=== PATIENT | male | born 1935 | race Caucasian/White ===

== ENCOUNTER 2016-02-22 19:30 | Inpatient (IN) | payer MEDICARE, OTHER ==
[~2016-02-22] VITALS: Ht 185.4 cm; Wt 98.9 kg
--- NOTE | 2016-02-22 19:30 | NUR ---
PT ARRIVED TO UNIT VIA WHEELCHAIR ACCOMPANIED BY HOSPITAL STAFF AND SPOUSE. PT IS A&OX4. PT IS WEARING A BACK BRACE THAT HE IS TO WEAR ANY TIME HE IS OUT OF BED. PT HAS A DECUB ON HIS LEFT BUTTOCK, WILL PUT IN WOUND CONSULT. PT ORIENTED TO ROOM AND INSTRUCTED ON USE OF CALL LIGHT. PT DENIES NEEDS AT THIS TIME. BED LOW. CL IN [facility]. [facility].
[2016-02-22 21:04] VITALS: BP 120/57; BMI 28.8
[2016-02-22 21:10] VITALS: BP 120/57
--- NOTE | 2016-02-22 22:10 | NUR ---
PT TOOK HS MEDS WITHOUT DIFFICULTY. PT DENIES NEEDS AT THIS TIME. BED LOW. CL IN [facility]. TM.
--- NOTE | 2016-02-23 01:19 | NUR ---
PT RESTING, EYES CLOSED. BED LOW. CL IN REACH. WCTM
--- NOTE | 2016-02-23 03:20 | NUR ---
PT RESTING, EYES CLOSED. BED LOW. CL IN REACH. WCTM.
[2016-02-23] MEDS ORDERED: VIBRAMYCIN 100100 MG PO (04:57)
[2016-02-23] MEDS ORDERED: ACETAMINOPHEN500 M1 PO (04:58)
[2016-02-23] MEDS ORDERED: ASPIRIN81 MG PO (04:59)
[2016-02-23] MEDS ORDERED: CELEBREX200 MG PO (04:59)
[2016-02-23] MEDS ORDERED: GABAPENTIN100 MG PO (05:00)
[2016-02-23] MEDS ORDERED: IBUPROFEN400 MG PO (05:01)
[2016-02-23] MEDS ORDERED: ROBAXIN-750750 MG PO (05:02)
[2016-02-23] MEDS ORDERED: OCUVITE TABLET1 TA1 PO (05:03)
[2016-02-23] MEDS ORDERED: MULTI-DAY VITAM1 TAB PO (05:03)
[2016-02-23] MEDS ORDERED: MS CONTIN15 MG PO (05:03)
[2016-02-23] MEDS ORDERED: OXYCODONE HCL5 MG PO (05:04)
[2016-02-23] MEDS ORDERED: ZOCOR40 MG PO (05:05)
[2016-02-23] MEDS ORDERED: PRENATAL COMPLE1 TAB PO (05:05)
[2016-02-23] MEDS ORDERED: SPIRIVA18 MCG INH (05:06)
[2016-02-23] MEDS ORDERED: AMBIEN CR 6.26.25 MG PO (05:06)
--- NOTE | 2016-02-23 06:40 | NUR ---
PT RESTING IN BED, EYES OPEN, DENIES NEEDS. BED LOW. CL IN REACH.
[2016-02-23 07:13] LABS: BASOPHILS 0.5 % (0.0-2.0); EOSINOPHILS 4.4 % (0-7); HEMATOCRIT 30.2 % (42.0-54.0); HEMOGLOBIN 9.3 g/dL (13.5-17.5); IMMATURE GRANULOCYTES 3.2 % (0-5); LYMPHOCYTES 15.3 % (15-50); MCH 29.2 pg (26.0-34.0); MCHC 30.8 g/dL (31.0-37.0); MCV 94.7 fL (80.0-100.0); MEAN PLATELET VOLUME 9.5 fL (7.4-10.4); NEUTROPHILS 66.6 % (40-80); PLATELET COUNT 318 10x3/uL (130-400); RBC 3.19 10x6/uL (4.20-6.10); RDW 14.9 % (11.5-14.5)
[2016-02-23 07:26] LABS: ANION GAP 10.2 mmol/L (8-16); CALCIUM 8.4 mg/dL (8.5-10.1); CREATININE - SERUM 1.3 mg/dL (0.6-1.3); POTASSIUM - SERUM 4.2 mmol/L (3.5-5.1)
--- NOTE | 2016-02-23 08:03 | NUR ---
PATIENT AWAKE, ALERT/ORIENT X4. CALL LIGHT WITHIN REACH. VOICES NO NEEDS
[2016-02-23 08:41] VITALS: Ht 185.4 cm; Wt 98.9 kg
[2016-02-23 09:54] VITALS: BP 103/67
--- NOTE | 2016-02-23 10:39 | NUR ---
DR. Stacey DONALD INTO SEE PATIENT. NEW ORDERS RECEIVED. PATIENT IS ALERT/OREINT X4
--- NOTE | 2016-02-23 13:00 | NUR ---
PATIENT IN REHAB ROOM. WORKING WITH PHYSICAL THERAPIST. BACK BRACE ON. DENIES ANY PAIN/DISC AT THIS TIME
--- NOTE | 2016-02-23 16:09 | NUR ---
PATIENT USING CALL LIGHT TO GO TO THE BATHROOM. STANDBY ASST. PATIENT HAS AN UNSTEADY GAIT
--- NOTE | 2016-02-23 19:40 | NUR ---
PT RESTING IN BED WATCHING TV, DENIES NEEDS AT THIS TIME. BED LOW. CL IN REACH. WCTM.
[2016-02-23 19:45] VITALS: BP 110/69
--- NOTE | 2016-02-23 20:45 | NUR ---
PT TOOK HS MEDS WITHOUT DIFFICULYT. PT STATES PAIN LEVEL OF 5 TO LOWER BACK. PT REMINDED TO USE URINAL THROUGHOUT THE NIGHT AND TO USE CL TO GET OUT OF BED. DRESSING TO LEFT BUTTOCK IS CDI. PT DENIES NEEDS AT THIS TIME. BED LOW. CL IN REACH.
--- NOTE | 2016-02-23 22:00 | NUR ---
PT RESTING, EYES CLOSED. BED LOW. CL IN REACH. WCTM.
--- NOTE | 2016-02-24 01:05 | NUR ---
PT ASSISTED WTIH URINAL. PT DENIES FURTHUR NEEDS. WCTM. BED LOW. CLIN REACH.
--- NOTE | 2016-02-24 03:54 | NUR ---
PT RESTING, EYES CLOSED. RR ARE EVEN AND UNLABORED. NO S&S OF DISTRESS NOTED. WCTM. BED LOW. CL IN REACH.
--- NOTE | 2016-02-24 08:08 | NUR ---
SITTING ON SIDE OF BED. ALERT AND ORIENTED X3. NOT WEARING BACK BRACE AT PRESENT.
--- NOTE | 2016-02-24 11:41 | NUR ---
DENIES PAIN OR SOB. NON PRODUCTIVE COUGH NOTED. TIRES EASILY.
[2016-02-24 16:13] VITALS: BP 110/62
--- NOTE | 2016-02-24 20:45 | NUR ---
PT. IN BED WITH HOB UP AND BACK BRACE OFF. ASSESSMENT COMPLETED. PT. WITH DRY BOTHERSOME COUGH AND REQUESTING SOMETHING FOR IT. PT'S ORDERS WILL BE CHECKED AND LET PT. KNOW IF HE HAS ANYTHING ORDERED FOR IT. INFORMED PT. THAT HIS LUNG ASSESSMENT WAS GOOD. LOVE BED ALARM ON. CALL LIGHT WITHIN REACH FOR ANY OTHER NEEDS.
[2016-02-24 22:21] VITALS: BP 98/64
--- NOTE | 2016-02-25 01:35 | NUR ---
PT. IN BED WITH HOB UP FOR COMFORT WITH EYES CLOSED AND RESP. EVEN. CALL LIGHT WITHIN REACH.
--- NOTE | 2016-02-25 06:03 | NUR ---
PT. IN BED LYING ON HIS RIGHT SIDE WITH EYES CLOSED AND RESP. EVEN WHILE I WAS PLACING FRESH ICE WATER ON HIS BEDSIDE TABLE. CALL LIGHT REMAINS WITHIN REACH
--- NOTE | 2016-02-25 08:05 | NUR ---
RESTING QUIETLY IN BED. DID NOT WANT TO EAT BREAKFAST JUST YET. DENIES INCREASED PAIN. STATES HE IS JUST SLEEPY AND WANTS TO REST
[2016-02-25 10:49] VITALS: BP 95/50
--- NOTE | 2016-02-25 17:53 | NUR ---
SITTING ON SIDE OF BED EATING SUPPER. CALL LIGHT IN REACH
--- NOTE | 2016-02-25 19:50 | NUR ---
PT. IN BED WITH HOB UP FOR COMFORT AND BACK BRACE OFF. PT. WATCHING TV. ASSESSMENT COMPLETED. PT. DENIES ANY NEEDS AT THIS TIME AND HAS HIS CALL LIGHT WITHIN REACH.
[2016-02-25 20:00] VITALS: BP 83/47
--- NOTE | 2016-02-26 01:42 | NUR ---
PT. IN BED WITH HOB UP FOR COMFORT WITH EYES CLOSED AND RESP. EVEN. CALL LIGHT WITHIN REACH.
[2016-02-26 06:33] LABS: HEMATOCRIT 29.6 % (42.0-54.0); IMMATURE GRANULOCYTES 1.5 % (0-5); LYMPHOCYTES 17.3 % (15-50); MCH 28.9 pg (26.0-34.0); MCHC 30.4 g/dL (31.0-37.0); MCV 95.2 fL (80.0-100.0); MEAN PLATELET VOLUME 9.6 fL (7.4-10.4); MONOCYTES 10.4 % (2-11); NEUTROPHILS 63.8 % (40-80); PLATELET COUNT 329 10x3/uL (130-400); RBC 3.11 10x6/uL (4.20-6.10); RDW 15.1 % (11.5-14.5); WBC 9.5 10x3/uL (4.8-10.8)
[2016-02-26 07:01] LABS: ANION GAP 8.6 mmol/L (8-16); CALCIUM 9.1 mg/dL (8.5-10.1); CREATININE - SERUM 1.6 mg/dL (0.6-1.3); POTASSIUM - SERUM 4.6 mmol/L (3.5-5.1)
--- NOTE | 2016-02-26 08:23 | NUR ---
PATIENT SITTING ON THE SIDE OF HIS BED EATTING BREAKFAST. VOICES NO NEEDS. CALL LIGHT WITHIN REACH. SCHEDULED PAIN MEDICATIONS GIVEN
[2016-02-26 09:43] VITALS: BP 133/69
--- NOTE | 2016-02-26 10:00 | NUR ---
THIS NURSE CALLED WOUND CARE NURSE FOR CONSULT ON LEFT BUTTOM. WOUND CARE NURSE STATED THAT SHE WILL COME DOWN AFTER THERAPY AND ASST. BOTTOM
--- NOTE | 2016-02-26 12:10 | NUR ---
PATIENT DID NOT GET A LUNCH TRAY. THIS NURSE CALLED DOWN TO KITCHEN TO BRING A LUNCH TRAY.
--- NOTE | 2016-02-26 14:44 | RHP ---
PATIENT: MICHAEL PASCUAL MEDICAL RECORD: [id number] ACCOUNT: [id number] LOCATION:[id number] : 31 ADMISSION DATE: 02/22/16 REHABILITATION HISTORY AND PHYSICAL EXAMINATION POST ADMISSION PHYSICIAN EXAMINATION DATE OF ADMISSION: 02/22/2016. ADMITTING DIAGNOSES: Toxic encephalopathy and chronic obstructive pulmonary disease with exacerbation. HISTORY OF PRESENT ILLNESS: The patient is admitted to the inpatient rehabilitation for acute toxic encephalopathy and had a recent spinal surgery in [place] on January 24, had a week stay in the SNF there. Prior to this event, he was independent with ADLs and playing golf weekly, travelled back to [place] on a 2-day road trip and was home a few days and began to have generalized weakness, began to be unable to stand up and function, shortness of breath, significant cough, weight loss, confusion, and acute mental status changes. He presented to the Emergency Room and was admitted with UTI. He has ulcer to his left buttock, acute toxic encephalopathy and COPD exacerbation. The patient is now doing better, but would definitely require inpatient rehab to get back to his prior level of functioning. COMORBIDITIES: Include spinal stenosis with recent surgery, UTI, decubitus ulcer, coronary artery disease, history of lung cancer with pneumonectomy, history of tobacco use, generalized weakness, significant cough, weight loss, chronic hypostatic blood pressure problems, advanced age, hyperlipidemia, gastroesophageal reflux disease, chronic bronchitis, narrowing of the spinal canal and acute cystitis. PAST MEDICAL HISTORY: Significant for lung cancer, coronary artery disease, COPD, spinal stenosis and hypostatic blood pressure changes. PAST SURGICAL HISTORY: Includes a left lung pneumonectomy in 2009 and spinal fusion. ALLERGIES: MORPHINE. CURRENT MEDICATIONS: Include Celebrex 200 mg daily. He is on Turdoza b.i.d., vitamin daily. He is on betacarotene daily, multivitamin daily, aspirin chewable 81 mg daily, Acetaminophen 500 mg b.i.d., ibuprofen 400 mg daily, zolpidem 5 mg at bedtime, Zocor 40 mg at bedtime, OxyIR 5 mg q.4 hours p.r.n., morphine control release 15 mg b.i.d., Robaxin 750 q. 4 hours p.r.n. spasms, Neurontin 200 mg t.i.d. He is on doxycycline 100 mg b.i.d., polyethylene glycol 17 grams in 8 ounces of water daily. HABITS: No current alcohol or tobacco use. He does have a history of tobacco use in the past. FAMILY HISTORY: Noncontributory. SOCIAL HISTORY: The patient hopes to return back home with family or possibly a caregiver. [place] REVIEW OF SYSTEMS: HISTORY AND PHYSICAL [id number] MICHAEL PASCUAL GENERAL: He does complain of weakness and fatigue. HEENT: He denies cold, cough, or congestion. CARDIOVASCULAR: He denies chest pain. PHYSICAL EXAMINATION: VITAL SIGNS: Stable and afebrile. GENERAL: Elderly gentleman in no acute distress, alert upon exam. HEENT: Normocephalic and atraumatic. Mucosa moist. NECK: Soft. No lymphadenopathy. LUNGS: Clear at this time. HEART: Regular rate and rhythm. ABDOMEN: Benign. EXTREMITIES: No clubbing, cyanosis or edema. NEUROLOGIC: He is intact. Mainly, he does have noted weakness in his extremities. LABORATORY DATA: His white count was 11.0, H&H of 9.3 and 30.2 and platelet count 318. Sodium 139, potassium 4.2. BUN and creatinine of 18 and 1.9, and blood sugar is noted to be 99. ASSESSMENT: This is an 80-year-old gentleman admitted to the rehab with a working diagnosis of acute toxic encephalopathy complicated by recent back surgery. The patient has potential to make improvement. We instituted the following multidisciplinary therapies including to, but not limited to physical, occupational, respiratory, speech, nutritional services, prosthetics and orthotics. Given his complex condition and risk for more complications, rehabilitation services cannot be provided at a low level of care such as a assisted facility. PLAN: 1. Admit to [facility] rehab for intensive inpatient therapy to include the following disciplines: A. Physical therapy to improve gait, all transfer skills and bed mobility to a modified independent level. B. Occupational therapy to improve activities of daily living to a modified independent level. C. Case management to assist with discharge planning and placement options. D. Nutrition to assist with nutritional needs. E. Rehabilitation nursing to assist and monitor the following medical conditions and to assist with any type of bowel or bladder management. 2. The patient's current medications and medical care will be continued. 3. The patient will be placed on standard fall precautions. 4. The patient's estimated length of stay is approximately 7-10 days. 5. Discuss this patient during care team staff meeting this week. TRANSINT:[id number] Voice Confirmation ID: [id number] DOCUMENT ID: [id number] HISTORY AND PHYSICAL [id number] MICHAEL PASCUAL SCOTT MD at 1444 CC: [id number] DICTATION DATE: 02/23/16 0947 POUCH MAKER: 02/23/16 1035 ADM IN [place] [id number] [place] [address]
--- NOTE | 2016-02-26 14:46 | NUR ---
WOUND CARE CONSULT: PT HAS AN UNSTAGEABLE PRESSURE INJURY ON LEFT BUTTOCK/GLUTEAL FOLD. IT MEASURES 7CM X 7CM X ESCHAR (WHITE/YELLOW). WOUND EDGES ARE PINK. THERE IS A SMALL AMOUNT OF DRAINAGE ON DRESSING WITH NO ODOR. PT IS UP WITH WALKER AMBULATING AND HE IS ABLE TO TURN/REPOSITION HIMSELF IN BED. RECOMMEND APPLYING SANTYL OINTMENT ON ESCHAR. WOUND CARE WILL CONTINUE TO MONITOR.
--- NOTE | 2016-02-26 15:32 | NUR ---
WOUND NURSE, EMMANUEL, HERE TO EVALUATE SKIN, UNSTAGED DEQUBE. NEW ORDERS RECEIVED.
--- NOTE | 2016-02-26 16:25 | NUR ---
Pt. was actually in the bathroom upon this assessment. He is alert and oriented x 3. Denies any needs or discomfort at this time. He is pretty independent with his adl's. Will continue to monitor.
--- NOTE | 2016-02-26 17:22 | NUR ---
PATIENT HAS SIGNED BED/CHAIR ALARM WAVIOR. STEADY GAIT WITH WHEELED WALKER.
[2016-02-26 19:35] VITALS: BP 115/57
--- NOTE | 2016-02-26 19:45 | NUR ---
PT RESTING IN BED WATCHING TV, DENIES NEEDS AT THIS TIME. BED LOW. CL IN REACH. WCTM.
--- NOTE | 2016-02-26 21:45 | NUR ---
PT TOOK HS MEDS WITHOUT DIFFICUTY. PT DRESSING TO LEFT BUTTOCK CHANGED, SANTYL APPLIED. PT REFUSED SHOWER TONIGHT AND STATES HE'D RATHER TAKE ONE TOMORROW. WCTM. BED LOW. CL IN REACH.
--- NOTE | 2016-02-26 23:59 | NUR ---
PT RESTING, WATCHING TV, DENIES NEEDS AT THIS TIME. BED LOW. CL IN REACH. WCTM.
--- NOTE | 2016-02-27 03:20 | NUR ---
PT RESTING, EYES CLOSED. BED LOW. CL IN [facility]. WCTM.
--- NOTE | 2016-02-27 06:09 | NUR ---
PT RESTING, EYES CLOSED. BED LOW. CL IN REACH. WCTM.
--- NOTE | 2016-02-27 07:28 | NUR ---
PATIENT AWAKE, ALERT/ORIENTX4. PATIENT REMAINED TO USE WALKER. HAS SIGNED BED/CHAIR ALARM WAVIOR. STEADY GAIT WITH WHEELED WALKER
[2016-02-27 09:23] VITALS: BP 112/69
--- NOTE | 2016-02-27 10:33 | NUR ---
PATIENT HELPED WITH SET UP FOR A SHOWER. PATIENT ABLE TO WASH AND DRY SELF. LINENS ON BED CHANGED WHILE PATIENT IN SHOWER. DRESSING TO LEFT BUTTOKS CHANGED DUE TO DRESSING GETTING WET. LARGE AMOUNT OF BROWN DRAINAGE ON DRESSING,.
--- NOTE | 2016-02-27 14:47 | NUR ---
PATIENT IN REHAB ROOM. WORKING WITH PHYSICAL THERAPIST. DENIES ANY PAIN/DISC AT THIS TIME
--- NOTE | 2016-02-27 15:29 | NUR ---
Pt. is stable this shift. He is being monitored throughout this shift and assisted prn with adl's. Dr. Jordan rounded this day. No signs of any discomfort or distress.
--- NOTE | 2016-02-27 16:58 | NUR ---
PATIENT LYING ACROSS BED WITH EYES CLOSED. CALL LIGHT WITHIN REACH
--- NOTE | 2016-02-27 19:30 | NUR ---
PT RESTING IN BED WATCHING TV, DENIES NEEDS AT THIS TIME. BED LOW. CL IN REACH. WCTM
[2016-02-27 21:00] VITALS: BP 102/54
--- NOTE | 2016-02-27 21:20 | NUR ---
PT TOOK ALL HS MEDS WITHOUT DIFFICULTY. PT REFUSED MORPHINE AND TYLENOL AND REQ AND REC'D PRN AMBIEN. PT DRESSING TO LEFT BUTTOCK CHANGED AT THIS TIME. PT DENIES NEEDS. WCTM. BED LOW. CL IN REACH.
--- NOTE | 2016-02-27 23:40 | NUR ---
PT RESTING, EYES CLOSED. BED LOW. CL IN REACH. WCTM.
--- NOTE | 2016-02-28 01:43 | NUR ---
PT RESTING, EYES CLOSED. BED LOW. CL IN REACH. WCTM.
--- NOTE | 2016-02-28 03:52 | NUR ---
PT RESTING, EYES CLOSED. BED LOW. CL IN REACH. WCTM.
--- NOTE | 2016-02-28 06:19 | NUR ---
PT AWAKENED AND DRESSED FOR THE DAY. PT DENIES NEEDS AT THIS TIME. BED LOW. CL IN REACH.
--- NOTE | 2016-02-28 07:47 | NUR ---
RESTING IN BED WITH EYES OPEN.
[2016-02-28 07:54] VITALS: BP 102/57
--- NOTE | 2016-02-28 14:13 | NUR ---
Nutrition Follow Up: Pt was in therapy at the time of RD visit. Chart reviewed and pt was discussed in Rehab staffing. Noted pt c/o constipation. Diet: AHA; Mika BID, Ensure TID PO Intake: 92% (9 meal avg) +BM 02/25/16 Labs noted - BUN, Cr elevated Meds: MV Pt with excellent po intake at this time. Rec cotinue current diet, supplement regimen. RD following.
--- NOTE | 2016-02-28 15:27 | NUR ---
PT UP TO TOILET SETTING TRYING TO HAVE A BOWEL MOVEMENT
--- NOTE | 2016-02-28 16:25 | NUR ---
CARE TEAM MEETING: PATIENT AND ATTENDED MEETING. PATIENT PROGRESSING WELL. PATIENT WILL BE RA AT NEXT MEETING. WILL CONTINUE TO FOLLOW WITH PATIENT.
[2016-02-28 20:14] VITALS: BP 112/52
--- NOTE | 2016-02-28 21:09 | NUR ---
RESTING IN BED. AROUSES TO VOICE. ALERT ORIENTED CONVERSANT. DENIES NEEDS. NO ACUTE DISTRESS NOTED. INFORMED THAT PT WAS CPONSTIPATED. PROVIDED MIRALAX PRN AND PRUNE JUICE
--- NOTE | 2016-02-29 04:40 | NUR ---
REMAINS IN BED, EYES CLOSED. RESPIRATIONS UNLABORED.
--- NOTE | 2016-02-29 05:34 | NUR ---
DRESSING TO LEFT BUTTOCK CHANGED. PREVIOUS DRESSING REMOVED, DRAINAGE NOTED. LARGE NON-BLANCHABLE YELLOW AREA PRESENT. NON-ADHERANT PAD PLACED OVER WOUND, 4X4 BORDERED GUAZE PLACED OVER WOUND
--- NOTE | 2016-02-29 07:06 | NUR ---
RESTING QUIETLY IN BED. CALL LIGHT IN REACH
--- NOTE | 2016-02-29 08:15 | NUR ---
PT RESTING IN BED WITH EYES OPEN CALL LIGHT IN REACH NO PROBLEMS WILL MONITER
[2016-02-29 08:21] VITALS: BP 126/59
--- NOTE | 2016-02-29 14:40 | NUR ---
PT IN THERAPY GYM NO PROBLEMS WILL MONITER
--- NOTE | 2016-02-29 20:15 | NUR ---
PT. IN BED WITH HOB UP FOR COMFORT WATCHING TV. ASSESSMENT COMPLETED. NO VOICED NEEDS AND CALL LIGHT IS WITHIN REACH.
[2016-02-29 22:54] VITALS: BP 101/48
--- NOTE | 2016-03-01 03:15 | NUR ---
PT. IN BED LYING ON HIS SIDE EARLIER INSTRUCTED TO ALLOW FOR WOUND HEALING. EYES ARE CLOSED AND RESP. ARE EVEN. CALL LIGHT WITHIN REACH.
--- NOTE | 2016-03-01 06:10 | NUR ---
AFTER GIVING PT. HIS MORNING MEDICATION HE REQUESTED NOT TO BE BOTHERED THIS MORNING HE "DIDN'T SLEEP AT ALL LAST NIGHT." INFORMED PT. THAT I HAD NO OTHER ITEMS TO ADDRESS WITH HIM AND THAT BREAKFAST IS DELIVERED AROUND 0800 SO THERE SHOULDN'T BE ANYONE AWAKENING HIM UNTIL BREAKFAST. CALL LIGHT WITHIN REACH I CLOSED HIS DOOR.
--- NOTE | 2016-03-01 07:39 | NUR ---
RESTING QUIETLY IN BED. NO S/S DISTRESS
--- NOTE | 2016-03-01 10:09 | NUR ---
SITTING UP IN CHAIR. REFUSES NARCOTICS DUE TO FEAR ON CONSTIPATION. MOTRIN GIVEN AT PT REQUEST. HAS DENIES INCREASING PAIN.
[2016-03-01 10:37] VITALS: BP 95/64
--- NOTE | 2016-03-01 13:00 | NUR ---
IN CHAIR. ALERT AND ORIENTED. BACK BRACE IN PLACE
--- NOTE | 2016-03-01 16:13 | NUR ---
RESTING QUIETLY IN BED. BACK BRACE IN PLACE. NO S/S DISTRESS. CALL LIGHT BY HAND
--- NOTE | 2016-03-01 19:55 | NUR ---
PT IN BED RESTING, EYES OPEN, DENIES NEEDS. WCTM. BED LOW. CL IN [facility].
--- NOTE | 2016-03-01 21:30 | NUR ---
PT TOOK HS MEDS WITHOUT DIFFICULTY. PT DRESSING TO LEFT BUTTOCK CHANGED. PT DENIES NEEDS AT THIS TIME. BED LOW. CL IN REACH.
[2016-03-01 21:37] VITALS: BP 106/53
--- NOTE | 2016-03-02 00:50 | NUR ---
PT RESTING, EYES CLOSED. BED LOW. CL IN REACH.
[2016-03-02 07:00] VITALS: BP 133/86
--- NOTE | 2016-03-02 07:50 | NUR ---
RESTING QUIETLY IN BED. LAYING ON SIDE. CALL LIGHT IN REACH
--- NOTE | 2016-03-02 10:21 | NUR ---
HAS SOFT STOOLS. UP WITH WALKER
--- NOTE | 2016-03-02 13:01 | NUR ---
LAYING IN BED ON SIDE. APPETITE GOOD. UP WITH WALKER
[2016-03-02 19:30] VITALS: BP 120/57
--- NOTE | 2016-03-02 19:42 | NUR ---
PT RESTING IN BED. VS TAKEN. ASSESSMET COMPLETE. LEFT BUTTOCK DRESSING CAHNGED AND SANTYL APPLIED ON DAY SHIFT. WCTM. BED LOW. CL IN REACH.
--- NOTE | 2016-03-02 20:30 | NUR ---
PT HS MEDS GIVEN. PT REQ AND REC'D PRN AMBIEN AND OXY AT THIS TIME. PT DENIES FURTHUR NEEDS. WCTM. BED LOW. CLIN REACH.
--- NOTE | 2016-03-02 22:58 | NUR ---
PT RESTING, EYES CLSOED. BED LOW. CL IN REACH.
--- NOTE | 2016-03-03 00:32 | NUR ---
PT RESTING, EYES CLOSED. BED LOW. CL IN REACH. J
--- NOTE | 2016-03-03 03:00 | NUR ---
PT RESTING, EYES CLOSED. BED LOW. CL IN REACH.
--- NOTE | 2016-03-03 06:03 | NUR ---
PT AM MEDS GIVEN. PT DENIES NEEDS AT THIS TIEM. BED LOW. CL IN REACH.
[2016-03-03 07:00] VITALS: BP 107/66
--- NOTE | 2016-03-03 08:15 | NUR ---
PT RESTING IN BED WITH EYES OPEN CALL LIGHT IN REACH NO PROBLEMS WILL MONITER
--- NOTE | 2016-03-03 12:15 | NUR ---
PT RESTING IN BED WITH EYES OPEN CALL LIGHT IN REACH NO PROBLEMS WILL MONITER
--- NOTE | 2016-03-03 14:43 | NUR ---
Pt. stable this shift. No signs of any discomfort or distress. No complaints of any needs or concerns. Call light in reach. Will be monitoring throughout this shift.
--- NOTE | 2016-03-03 17:54 | NUR ---
PT RESTING IN BED WITH EYES OPEN CALL LIGHT IN REACH NO PROBLEMS WILL MONITER
--- NOTE | 2016-03-03 20:15 | NUR ---
PT IS RESTING QUIETLY IN BED WITH EYES CLOSED. AWOKE EASILY TO VERBAL STIMULI. ALERT AND ORIENTED X 3. DENIES ACUTE DISCOMFORT AT THIS TIME. NO NEEDS VOICED. SR'S ARE UP X 2 IN BED. CALL LIGHT AND BEDSIDE TABLE ARE WITHIN EASY REACH.
[2016-03-03 22:05] VITALS: BP 87/46
--- NOTE | 2016-03-03 22:10 | NUR ---
PT IS RESTING QUIETLY IN BED WITH EYES CLOSED. AWOKE EASILY TO VERBAL STIMULI. DRESSING TO LEFT BUTTOCK CHANGED. COPIOUS AMOUNT OF FOUL SMELLING YELLOW/GREEN DRAINAGE NOTED. SITE CLEANSED WELL WITH WOUND GEL, AND NEW DRESSING APPLIED. PT ENCOURAGED NOT TO SLEEP ON HIS BACK. HE VOICED VERBAL UNDERSTANDING.
--- NOTE | 2016-03-04 01:00 | NUR ---
PT IS RESTING QUIETLY IN BED WITH EYES CLOSED. RESPS ARE EVEN AND UNLABORED. NO ACUTE DISTRESS NOTED.
--- NOTE | 2016-03-04 04:03 | NUR ---
PT RESTING IN BED WITH EYES CLOSED.
--- NOTE | 2016-03-04 05:33 | NUR ---
PT RESTING QUIETLY, EYES CLOSED, NO S/S OF ACUTE DISTRESS.
--- NOTE | 2016-03-04 06:45 | NUR ---
RESTING QUIETLY IN BED. CALL LIGHT IN REACH
--- NOTE | 2016-03-04 08:15 | NUR ---
PT RESTING IN BED WITH EYES OPEN CALL LIGHT IN REACH NO PROBLEMS WILL MONITER
[2016-03-04 09:05] VITALS: BP 92/44
--- NOTE | 2016-03-04 13:57 | NUR ---
PT RESTING IN BED WITH EYES OPEN CALL LIGHT IN REACH NO PROBLEMS WILL MONITER
--- NOTE | 2016-03-04 13:58 | NUR ---
PT RESTING IN BED WITH EYES OPEN CALL LIGHT IN REACH NO PROBLEMS WILL MONITER
[2016-03-04 20:00] VITALS: BP 114/59
--- NOTE | 2016-03-05 01:55 | NUR ---
RECIEVED IN PATIENT ROOM, REPORT TAKEN, ALERT AND ORIENTED x 4, AMBULATES WITH WALKER, PRESSURE ULCER RIGHT BUTTOCKS, DRESSING CHANGED, PRN OXYCODONE IR 5 MG GIVEN FOR BACK PAIN AT 2120, NO ACUT DISTRESS NOTED OR VOICED BY PATIENT, WILL CONTINUE TO MONITOR.
--- NOTE | 2016-03-05 03:12 | NUR ---
PATIENT RESTING QUIETLY IN BED WATCHING TV, NO ACUTE DISTRESS NOTED OR VOICED BY PATIENT. WILL CONTINUE TO MONITOR.
--- NOTE | 2016-03-05 08:15 | NUR ---
PT IN BED WITH EYES CLOSED. CALL LIGHT IN REACH.
[2016-03-05 08:39] VITALS: BP 122/69
--- NOTE | 2016-03-05 13:19 | NUR ---
Nutrition Follow Up: Chart reviewed. Pt with healing ulcer to R Buttocks per MD note. Pt is eating 67% of AHA diet. Pt receiving Mika BID and Ensure TID. +BM 03/04/16. No new wt to assess. No new labs. Meds: MV. Rec continue current diet, supplement regimen. RD following.
--- NOTE | 2016-03-05 17:45 | NUR ---
PT IN BED EATING SUPPER. CALL LIGHT IN REACH.
--- NOTE | 2016-03-05 19:20 | NUR ---
INTRODUCED SELF TO PT, PT UP TO RESTROOM WITH NO ASSISTANCE, PT STATES NO NEW NEEDS AT THIS TIME, WILL CONTINUE TO MONITOR, CALL LIGHT WITHIN REACH.
[2016-03-05 19:51] VITALS: BP 140/71
[2016-03-05 19:57] VITALS: BP 125/74
--- NOTE | 2016-03-05 21:45 | NUR ---
NIGHT MEDICATION GIVEN, PT TOLERATED WELL, WILL CONTINUE TO MONITOR, CALL LIGHT WITHIN REACH.
--- NOTE | 2016-03-05 23:28 | NUR ---
PT RESTING QUIETLY, RESPIRATIONS EVEN, BED IN LOW POSITION, SIDE RAILS UP X'S 2, CALL LIGHT WITHIN REACH.
--- NOTE | 2016-03-06 00:48 | NUR ---
PT RESTING QUIETLY, RESPIRATIONS EVEN, WILL CONTINUE TO MONITOR, CALL LIGHT WITHIN REACH.
--- NOTE | 2016-03-06 02:15 | NUR ---
RESTING IN BED, EYES CLOSED. REMAINS IN BED, EYES CLOSED. NO DISTRESS EVIDENT.
--- NOTE | 2016-03-06 04:24 | NUR ---
PT RESTING QUIETLY, RESPIRATIONS EVEN, WILL CONTINUE TO MONITOR, CALL LIGHT WITHIN REACH.
--- NOTE | 2016-03-06 06:22 | NUR ---
PT IN BATHROOM, ASSISTED PT WITH BACK BRACE, PT BACK TO BED, MORNING MEDICATION GIVEN, PT TOLERATED WELL, WILL CONTINUE TO MONITER, CALL LIGHT WITHIN REACH.
--- NOTE | 2016-03-06 07:00 | NUR ---
Pt. was received at the beginning of this shift in bed awake and oriented x 3. Vital signs: Temp. 97.7, pulse 64, resp. 15, b/p119/70, 02Sat. 96%. No voiced complaints at this time. Will be monitoring him through the shift and assisting prn with adl's.
[2016-03-06 08:29] VITALS: BP 119/70
--- NOTE | 2016-03-06 16:59 | NUR ---
CARE TEAM MEETING: PATIENT WILL DISCHARGE ON 03/07/16 TO HIS HOME. HE WILL GET A ROLLING WALKER FROM THE [place]. [facility] WILL PROVIDE NURSING, PT, OT, AND SPEECH. DR. SANCHEZ 03/20/16 @ 1:40. [facility] EXPLAINED AND FILE IN CHART. WILL CONTINUE TO FOLLOW WITH PATIENT UNTIL DISCHARGED
--- NOTE | 2016-03-06 18:54 | NUR ---
Pt had an uneventful day today. He did not eat any supper because he said, "I'm not hungry." Pt. did have 1 medium bm today. No voiced complaints of any pain or discomfort. Call light in reach. He is currently resting in bed.
--- NOTE | 2016-03-06 19:30 | NUR ---
PT RESTING, EYES CLOSED. BED LOW. CL IN REACH. WCTM.
--- NOTE | 2016-03-06 21:55 | NUR ---
PT TOOK HS MEDS WITHOUT DIFFICULTY. PT BANDAGE TO LEFT BUTTOCK CHANGED, SANTYL APPLIED TO SORE. PT DENIES FURTHUR NEEDS AT THIS TIME. BED LOW. CL IN REACH.
--- NOTE | 2016-03-06 23:06 | NUR ---
PT RESTING, EYES CLOSED. BED LOW. CL IN REACH. WCTM.
--- NOTE | 2016-03-07 01:15 | NUR ---
PT RESTING, EYES CLOSED. BED LOW. CL IN REACH. WCTM.
--- NOTE | 2016-03-07 03:29 | NUR ---
PT RESTING, EYES CLOSED. BED LOW. CL IN REACH. WCTM.
--- NOTE | 2016-03-07 05:50 | NUR ---
PT TOOK AM MEDS WITHOUT DIFFICULTY. WCTM. BED LOW. CL IN REACH.
[2016-03-07] MEDS ORDERED: LINZESS145 MCG PO (08:25)
[2016-03-07] MEDS ORDERED: SANTYL30 GM TOPICAL (08:25)
[2016-03-07] MEDS ORDERED: MIRALAX17 GM PO (08:25)
[2016-03-07 09:34] VITALS: BP 101/48
--- NOTE | 2016-03-07 16:02 | NUR ---
UP TO BATHROOM. CONT OF B/B. STATES HE IS UNABLE TO WIPE BUTTOCKS DUE TO PAIN IN BACK EVEN WITH BACK BRACE ON. REFUSED TO TRY. STATES HE USES TONGS AT HOME AND WILL CONTINUE THAT WAY. IS SCHEDULED FOR D/C TODAY
--- NOTE | 2016-03-07 18:34 | NUR ---
DC HOME WITH ALL PERSONAL BELONGINGS. MEDS CALLED INTO [facility] AT [facility]. DENIES NEEDS OR QUESTIONS. CAME GOT OPT
== END 2016-03-07 18:36 | disposition home health service (06) | DRG 92 ==
LOC: D.REHAB 19:30
PROVIDERS: ADMIT Emergency Medicine
DX: G92 Toxic encephalopathy (principal); J44.1 Chronic obstructive pulmonary disease with (acute) exacerbation; N30.00 Acute cystitis without hematuria; L89.329 Pressure ulcer of left buttock, unspecified stage; I25.10 Atherosclerotic heart disease of native coronary artery without angina pectoris; Z85.118 Personal history of other malignant neoplasm of bronchus and lung; R53.1 Weakness; R05 Cough; R63.4 Abnormal weight loss; E78.5 Hyperlipidemia, unspecified; K21.9 Gastro-esophageal reflux disease without esophagitis

== ENCOUNTER → 2016-04-15 16:13 | Outpatient (CLI) | payer MEDICARE, OTHER ==
[2016-02-23 08:41] VITALS: BMI 28.7
[~2016-04-15 16:13] MED LIST: ACETAMINOPHEN500 M1 PO; AMBIEN CR 6.26.25 MG PO; ASPIRIN81 MG PO; CELEBREX200 MG PO; GABAPENTIN100 MG PO; IBUPROFEN400 MG PO; LINZESS145 MCG PO; MIRALAX17 GM PO; MS CONTIN15 MG PO; MULTI-DAY VITAM1 TAB PO; OCUVITE TABLET1 TA1 PO; OXYCODONE HCL5 MG PO; PRENATAL COMPLE1 TAB PO; ROBAXIN-750750 MG PO; SANTYL30 GM TOPICAL; SPIRIVA18 MCG INH; VIBRAMYCIN 100100 MG PO; ZOCOR40 MG PO
== END | disposition home or self-care (01) ==
LOC: D.RAD 16:13
DX: M48.06 Spinal stenosis, lumbar region (principal)

== ENCOUNTER 2016-06-19 00:13 | Emergency (ER) | payer MEDICARE, OTHER ==
[2016-02-23 08:41] VITALS: BMI 28.7
== END 2016-06-19 03:00 | disposition home or self-care (01) ==
LOC: D.ER 00:13
DX: R55 Syncope and collapse (principal); I95.1 Orthostatic hypotension; I44.60 Unspecified fascicular block

== ENCOUNTER → 2017-08-05 15:58 | Outpatient (CLI) | payer MEDICARE, OTHER ==
[2016-02-23 08:41] VITALS: BMI 28.7
[~2017-08-05 15:58] MED LIST changes: +VOLTAREN75 MG PO
== END | disposition home or self-care (01) ==
LOC: D.RAD 15:58
DX: R07.81 Pleurodynia (principal)

== ENCOUNTER 2017-08-09 14:34 | Emergency (ER) | payer MEDICARE, OTHER ==
[~2017-08-09] VITALS: Ht 185.4 cm; Wt 75.0 kg
[~2017-08-09 14:34] MED LIST changes: -VOLTAREN75 MG PO
[2017-08-09 14:42] VITALS: Ht 185.4 cm; Wt 75.0 kg
[2017-08-09 16:12] LABS: APTT 30.1 SECONDS (22.8-39.4); INR 1.26 (0.85-1.17); PROTIME 15.4 SECONDS (11.6-15.0)
[2017-08-09 16:15] LABS: ANION GAP 11.4 mmol/L (8-16); CALCIUM 8.4 mg/dL (8.5-10.1); CARBON DIOXIDE 28.6 mmol/L (21.0-32.0); CREATININE - SERUM 1.4 mg/dL (0.6-1.3)
[2017-08-09] MEDS ORDERED: VOLTAREN75 MG PO (17:12)
[2017-08-09 17:32] VITALS: BP 154/87
== END 2017-08-09 17:34 | disposition home or self-care (01) ==
LOC: D.ER 14:34
PROVIDERS: Emergency Medicine
DX: S40.021A Contusion of right upper arm, initial encounter (principal); W19.XXXA Unspecified fall, initial encounter; Y93.9 Activity, unspecified; Y92.9 Unspecified place or not applicable

== ENCOUNTER 2018-09-24 08:10 | Day surgery (SDC) | payer MEDICARE, OTHER ==
[2018-09-23 13:49] LABS: HEMATOCRIT 37.1 % (42.0-54.0); HEMOGLOBIN 11.9 g/dL (13.5-17.5); MCH 31.9 pg (26.0-34.0); MCHC 32.1 g/dL (31.0-37.0); MCV 99.5 fL (80.0-100.0); MEAN PLATELET VOLUME 9.6 fL (7.4-10.4); RBC 3.73 10x6/uL (4.20-6.10); RDW 14.2 % (11.5-14.5); WBC 11.9 10x3/uL (4.8-10.8)
[2018-09-23 13:57] LABS: PLATELET COUNT 241 10x3/uL (130-400)
[2018-09-23 14:10] LABS: INR 1.17 (0.85-1.17); PROTIME 14.4 SECONDS (11.6-15.0)
[2018-09-23 14:11] LABS: APTT 26.6 SECONDS (22.8-39.4)
[2018-09-23 14:14] LABS: CALCIUM 8.3 mg/dL (8.5-10.1); CARBON DIOXIDE 27.2 mmol/L (21.0-32.0); CREATININE - SERUM 1.3 mg/dL (0.6-1.3); POTASSIUM - SERUM 4.2 mmol/L (3.5-5.1)
[2018-09-23 14:32] LABS: LYMPHOCYTES 11 % (15-50); MONOCYTES 11 % (2-11); NEUTROPHILS 78 % (40-80)
[2018-09-23 14:33] LABS: PLATELET ESTIMATE NORMAL
[~2018-09-24] VITALS: Ht 172.7 cm; Wt 72.6 kg
[~2018-09-24 08:10] MED LIST changes: +VOLTAREN75 MG PO
[2018-09-24] MEDS ORDERED: IPRAT-ALBUT 0.5-3 ML UPD (09:13)
[2018-09-24] MEDS ORDERED: COREG CR10 MG PO (09:15)
[2018-09-24] MEDS ORDERED: LANOXIN125 MCG PO (09:16)
[2018-09-24] MEDS ORDERED: CYMBALTA30 MG PO (09:16)
[2018-09-24] MEDS ORDERED: PREDNISONE20 MG PO (09:17)
[2018-09-24] MEDS ORDERED: FUROSEMIDE20 MG PO (09:18)
[2018-09-24] MEDS ORDERED: OMEPRAZOLE40 MG PO (09:19)
[2018-09-24] MEDS ORDERED: K-TAB10 MEQ PO (09:19)
[2018-09-24] MEDS ORDERED: EFFIENT10 MG PO (09:20)
[2018-09-24] MEDS ORDERED: CRESTOR40 MG PO (09:21)
[2018-09-24 09:25] VITALS: BP 149/92; Ht 172.7 cm; Wt 72.6 kg
--- NOTE | 2018-09-24 17:07 | NUR ---
1250-REC'D FROM RR. DROWSY,EASILY AROUSED,DENIES COMPLAINTS.SON AT BEDSIDE.CL IN EASY REACH.
--- NOTE | 2018-09-24 17:07 | NUR ---
1300-UNABLE TO URINATE,COMPLAIN OF PAIN. BLADDER SCAN PERFORMED SHOWING APPROXIMATELY 430ML OF URINE.
--- NOTE | 2018-09-24 17:08 | NUR ---
1345- PER DR. SMITH USING STERILE TECHNIQUE INSERTED 16FR 10CC JALLOH CATH WITH DARK RED URINE RETURN. FR.SARAH ASSESSED URINE IN BAG. NEW ORDER TO IRRIGATE WITH 120ML OF STERILE SALINE. ABLE TO IRRIGATE WITHOUT DIFFICULTIES.
--- NOTE | 2018-09-24 17:11 | NUR ---
1410- DISCONTINUED IV FROM LEFT HAND WITH CATH INTACT, DISPOSED INTO SHARPS.VSS. COVERED WITH BANDAID. REVIEWED EMPTYING OF URINE FROM BAG AND DISCHARGE INSTRUCTIONS WITH SON AND PT. VERBALIZED UNDERSTANDING. ESCORTED OUT BY STAFF VIA W/C. SON DRIVING HOME.
== END 2018-09-24 16:15 | disposition home or self-care (01) ==
LOC: D.OPS 08:10
PROVIDERS: Anesthesiology; ATTEND Urology
DX: N40.1 Benign prostatic hyperplasia with lower urinary tract symptoms (principal); N13.8 Other obstructive and reflux uropathy; N21.0 Calculus in bladder

== ENCOUNTER 2018-09-29 16:53 | Emergency (ER) | payer MEDICARE, OTHER ==
[~2018-09-29] VITALS: Ht 172.7 cm; Wt 67.9 kg
[~2018-09-29 16:53] MED LIST changes: +COREG CR10 MG PO; +CRESTOR40 MG PO; +CYMBALTA30 MG PO; +EFFIENT10 MG PO; +FUROSEMIDE20 MG PO; +IPRAT-ALBUT 0.5-3 ML UPD; +K-TAB10 MEQ PO; +LANOXIN125 MCG PO; +OMEPRAZOLE40 MG PO; +PREDNISONE20 MG PO
[2018-09-29 17:03] VITALS: Ht 172.7 cm; Wt 67.9 kg
[2018-09-29 17:50] LABS: BASOPHILS 0 % (0-2); EOSINOPHILS 1.8 % (0-7); HEMATOCRIT 30.6 % (42.0-54.0); IMMATURE GRANULOCYTES 1.1 % (0-5); LYMPHOCYTES 5.2 % (15-50); MCH 31.4 pg (26.0-34.0); MCHC 32.7 g/dL (31.0-37.0); MCV 96.2 fL (80.0-100.0); MEAN PLATELET VOLUME 9.3 fL (7.4-10.4); MONOCYTES 7.7 % (2-11); NEUTROPHILS 84.2 % (40-80); RBC 3.18 10x6/uL (4.20-6.10); WBC 13.6 10x3/uL (4.8-10.8)
[2018-09-29 17:54] LABS: PLATELET COUNT 184 10x3/uL (130-400)
[2018-09-29 18:06] LABS: INR 1.25 (0.85-1.17); PROTIME 15.2 SECONDS (11.6-15.0)
[2018-09-29 18:10] LABS: ALBUMIN 2.8 g/dL (3.4-5.0); ALKALINE PHOSPHATASE 56 U/L (46-116); ALT (SGPT) 18 U/L (10-68); BILIRUBIN - TOTAL 1.97 mg/dL (0.2-1.3); CALC OSMOLALITY 284 mosm/kg (275-300); CALCIUM 8.3 mg/dL (8.5-10.1); CARBON DIOXIDE 28.7 mmol/L (21.0-32.0); CHLORIDE - SERUM 104 mmol/L (98-107); GLUCOSE 91 mg/dL (74-106); POTASSIUM - SERUM 3.4 mmol/L (3.5-5.1); PROTEIN - SERUM 5.9 g/dL (6.4-8.2); SODIUM 142 mmol/L (136-145); UREA NITROGEN 18 mg/dL (7-18); eGFR NON AFRICAN AMERICAN 75 mL/min (90-120)
[2018-09-29 19:05] LABS: APPEARANCE TURBID (CLEAR); COLOR RED (YELLOW); GLUCOSE NEGATIVE (NEGATIVE); KETONE NEGATIVE (NEGATIVE); NITRITE NEGATIVE (NEGATIVE); PROTEIN 2+ mg/dL (NEGATIVE)
[2018-09-29 19:06] LABS: BILIRUBIN NEGATIVE (NEGATIVE); UROBILINOGEN NORMAL (NORMAL)
[2018-09-29 19:07] LABS: BACTERIA FEW /hpf (NONE SEEN); RED CELLS - URINE >50 /hpf (0-5); WHITE CELLS - URINE 0-5 /hpf (0-5)
[2018-09-29 20:05] VITALS: BP 161/88
== END 2018-09-29 20:05 | disposition home or self-care (01) ==
LOC: D.ER 16:53
PROVIDERS: Family Medicine
DX: R31.9 Hematuria, unspecified (principal); R33.9 Retention of urine, unspecified

== ENCOUNTER 2018-09-30 15:20 | Inpatient (IN) | payer MEDICARE, OTHER ==
[~2018-09-30] VITALS: Ht 172.7 cm; Wt 72.7 kg
[2018-09-30 16:09] VITALS: BP 160/85
--- NOTE | 2018-09-30 18:24 | NUR ---
PATIENT ADMITTED FROM SURGERY BLADDER CYSTO. PATIENTS SON WITH PATIENT. PATIENT IS ALERT/ORIENT. 3 WAY F/C. DRAINING LIGHT PINK DRAINAGE. LT HAND S/L.
[2018-09-30 20:00] VITALS: BP 124/64
--- NOTE | 2018-09-30 20:00 | OP ---
PATIENT NAME: MICHAEL PASCUAL MEDICAL RECORD: [id number] :33 LOCATION:[id number] ADMISSION DATE:09/30/18 SURGEON: JAYME SMITH MD DATE OF OPERATION: 09/30/2018 SURGEON: Jayme Smith MD ANESTHESIA: TIVA by José Antonio Cortes CRNA DIAGNOSIS: Clot urinary retention. PROCEDURE: Cystoscopy and bladder clot evacuation. FINDINGS: Open prostatic urethral anterior channel, bladder filled with blood clots. BLOOD LOSS: None. CLINICAL HISTORY: This is an 83-year-old male who had the UroLift procedure done recently. He had failed to stop his Effient until one day prior to the procedure. After the procedure, he went home with a Vang catheter because of hematuria. However, he immediately resumed taking Effient again and now he has issues with clot urinary retention. He comes today to have the bladder clots evacuated out. He did hold his Effient 2 days ago. HE IS ALLERGIC TO MORPHINE. We gave him Ancef on-call to the OR. DESCRIPTION OF PROCEDURE: The patient was given IV sedation. He was then placed into lithotomy position and prepped and draped. A 21-Taiwanese cystoscope with 30-degree lens was used for visualization. The bladder was filled with clots. We used an Ellik evacuator to remove all of the clots. The anterior prostatic urethral channel was open. Because of the persistent venous oozing, I decided to insert a 22-Taiwanese 3-way Vang catheter. The balloon was inflated with 30 cc of sterile water. We then started continuous bladder irrigation with normal saline. Once the Effient has worn off and his urine is clear, we will send him home. TRANSINT:[id number] Voice Confirmation ID: [id number] DOCUMENT ID: [id number] JAYME SMITH MD at 2000 CC: [id number] DICTATION DATE: 09/30/181720 LAUNDRY PRESSER: 09/30/18 1938 ADM IN [place] [id number] [place] [address]
--- NOTE | 2018-09-30 20:45 | NUR ---
AWAKE,ALERT,WATCHING TV QUEITLY. NO COMPALITNS AT PRESENT. JALLOH PATENT AND DRAINING PINK TINGED URINE. IRRIGATION IN PROGRESS.CL IN REACH
[2018-09-30 23:54] VITALS: BP 160/85; Ht 172.7 cm; Wt 72.7 kg
[2018-10-01] VITALS: BP 122/803
--- NOTE | 2018-10-01 00:19 | NUR ---
LYING IN BED,WITHOUT DISTRESS.
--- NOTE | 2018-10-01 07:58 | NUR ---
PT RESTING IN BED NO SIGNS OF DISTRESS. IV TO RIGHT HAND PATENT NO REDNESS OR TENDERNESS. HAS JALLOH NO KINKS PATENT. DENIES ANY FUTHER NEED AT THIS TIME. CALL LIGHT IN REACH. BED LOW POSITION. NO FAMILY AT BEDSIDE.
[2018-10-01 09:15] VITALS: BP 164/90
[2018-10-01 13:10] VITALS: BP 152/87
[2018-10-01 18:10] VITALS: BP 144/80
--- NOTE | 2018-10-01 19:00 | NUR ---
BEDSIDE REPORT RECEIVED AND CARE OF PT ASSUMED. PT LYING IN MID [place]'S POSITION WITH EYES CLOSED. IV TO RIGHT HAND SALINE LOCKED. 3-WAY IRRIGATING CATHETER DRAINING TO GRAVITY WITH YELLOW URINE IN COLLECTION BAG. WILL MONITOR FOR NEEDS.
--- NOTE | 2018-10-01 20:30 | NUR ---
PT ASSISTED UP TO RESTROOM AND HAD LARGE BM. POSITIONED BACK TO BED FOR COMFORT.
--- NOTE | 2018-10-01 20:32 | NUR ---
HS MEDICATIONS GIVEN. WILL CONTINUE TO MONITOR FOR NEEDS.
[2018-10-01 20:42] VITALS: BP 117/64
[2018-10-02 00:39] VITALS: BP 138/71
[2018-10-02 04:40] VITALS: BP 142/78
--- NOTE | 2018-10-02 07:19 | NUR ---
PATIENT TRYING TO GET OUT OF BED AND GET DRESSED AT THIS TIME. EXPLAINED TO PATIENT THAT HE CANT GET UP BY HIMSELF BC HE IS GOING TO TRIP OVER HIS CATH AND IRRIGATION TUBING AND HE CANT LEAVE UNTIL THE DR. COMES AND LETS HIM KNOW IF HE CAN GO HOME. PATIENT VERBALIZED UNDERSTANDING. SITTING UP ON THE SIDE OF THE BED. LOVE ALARM ON.
[2018-10-02 08:14] VITALS: BP 141/79
[2018-10-02 13:37] VITALS: BP 136/85
--- NOTE | 2018-10-02 14:04 | NUR ---
PATIENT JALLOH REMOVED PER ORDER AT THIS TIME.
--- NOTE | 2018-10-02 15:44 | MORECARE ---
CASE MANAGEMENT DISCHARGE SUMMARY PATIENT: MICHAEL PASCUAL JACY UNIT: [id number] ADM DATE: 09/30/18 AGE: 83 : 31 SEX: M ROOM/BED: D.2224 AUTHOR: MARINA BOX PHYSICIAN: REFERRING PHYSICIAN: CINDY SMITH MD DATE OF SERVICE: 10/02/18 Discharge Plan Patient Name: MICHAEL PASCUAL [facility] [facility] 1935 Planned Disposition: Home Anticipated Discharge Date: Discharge Date: Expected LOS: Initial Reviewer: [email or web address] Initial Review Date: 09/30/2018 Generated: 10/02/18 4:44 pm Comments DCP- Discharge Planning Updated by [email or web address]: Rachael Morris on 10/02/18 2:[address] Patient Name: MICHAEL PASCUAL Admission Status: Elective Accout number: [id number] Admission Date: 09-30-2018 : 1935 Admission Diagnosis:OTHER SPECIFIED DISORDERS OF BLADDER Attending: LYNDSAY SMITH Current LOS: 2 Anticipated DC Date: Planned Disposition: Home Primary Insurance: MEDICARE A & B Discharge Planning Comments: CM MET WITH PATIENT AND HIS SON ABOUT DC PLANNING/NEEDS. STATES PLANS TO DC TO HOME WITH SONYary BAUTISTA AND MALIHA AT HOME. TIFFANY IS HIS PCP AND USES [facility] ON [address] Pyrometer Mechanic: aRchael Morris Coverage Notice Reviewer: [id number] - Rachael Morris Notice Issued Date-Time: 10/02/2018 14:26 Notice Type: IM Discharge Notice Notice Delivered To: Patient Relationship to Patient: Self Retail Leader Name: Delivery Method: HAND - Hand Delivered Nu Days: Prior Verbal Notification: Recipient Understood Notice: Yes Recipient Signature: Yes Med Rec Note Co-signed by Attending: Coverage Notice Comment: Patient Name: MICHAEL PASCUAL Page [phone] at 1544 All edits/amendments must be made on the electronic document DICTATION DATE: 10/02/18 1544 DATA NETWORK ARCHITECT: MECHE 10/02/18 1544 RPT#: [id number] DC DATE: STATUS: ADM IN [facility] [address] [place] [address] END OF REPORT
--- NOTE | 2018-10-02 18:24 | NUR ---
PATIENT VOIDED 200 ML OF LIGHT PINK URINE WITH NO BLOOD CLOTS.
--- NOTE | 2018-10-02 18:25 | NUR ---
PATIENT RECIEVED DC INSTRUCTIONS. VERBALIZED UNDERSTANDING, SON AT BEDSIDE. NO QUESTIONS AT THIS TIME. AWAITING WC FOR DC. CALL LIGHT WITHIN REACH.
== END 2018-10-02 16:00 | disposition home or self-care (01) | DRG 700 ==
LOC: D.OPS 15:20 → D.MS 17:17
PROVIDERS: ADMIT Urology; ATTEND Urology
PROC: 0TCB8ZZ Extirpation of Matter from Bladder, Via Natural or Artificial Opening Endoscopic (ICD-10-PCS; principal; 2018-09-30 14:30)
DX: N32.89 Other specified disorders of bladder (principal); R33.8 Other retention of urine

== ENCOUNTER → 2018-10-14 18:44 | Outpatient (CLI) | payer MEDICARE, OTHER ==
[2018-09-30 23:54] VITALS: BMI 24.3
== END | disposition home or self-care (01) ==
LOC: D.LABREF 18:44
PROVIDERS: ATTEND Urology
DX: R31.9 Hematuria, unspecified (principal); D72.829 Elevated white blood cell count, unspecified

== ENCOUNTER → 2020-06-26 12:52 | Outpatient (CLI) | payer MEDICARE, OTHER ==
[2020-02-25 12:22] VITALS: BMI 22.8
== END | disposition home or self-care (01) ==
LOC: D.CT 12:52
PROVIDERS: ATTEND Family Medicine
DX: R41.3 Other amnesia (principal)

== ENCOUNTER → 2020-07-19 11:41 | Outpatient (CLI) | payer MEDICARE, OTHER ==
[2020-02-25 12:22] VITALS: BMI 22.8
== END | disposition home or self-care (01) ==
LOC: D.CT 11:30
PROVIDERS: ATTEND Nurse Practitioner Family
DX: M54.2 Cervicalgia (principal)